=== PATIENT | male | born 1995 | race Asian ===

== ENCOUNTER 2017-07-19 02:50 | Emergency (ER) | payer OTHER ==
[~2017-07-19] VITALS: Ht 172.7 cm; Wt 83.9 kg
[2017-07-19 02:50] VITALS: BP_SYST 153
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
--- NOTE | 2017-07-19 02:50 | NUR ---
Patient to ER hallway for evaluation. [facility] officers are with the patient.
--- NOTE | 2017-07-19 02:54 | NUR ---
Written and verbal consent obtained from patient for blood alcohol, name and verified by patient. Disinfected patient's skin with Iodine that did not contain alcohol or other volatile organic compound. Collected the blood from the subject named by venipuncture, in the presence of Officer [place] Number [id number]. Used a sterile, dry hypodermic needle and dry vacuum blood collection. The dry vacuum blood collection was supplied by the officer named above. Withdrew a specimen of blood from Right antecubital of the subject named above. Inverted the blood tube several times to ensure that the preservative and anticoagulant were thoroughly mixed in the blood specimen. I initialed the blood tube label for identification. The labeled blood tube was handed directly to the Officer named above. The blood tube stopper remained in place while I had possession of the blood tube. The Officer placed tube into envelope and sealed it in my presence. Envelope initialed by myself and Officer named above. Patient tolerated well, bandage applied, and bleeding controlled.
--- NOTE | 2017-07-19 03:30 | NUR ---
ER Dr. Harris at bedside examining patient.
[2017-07-19 03:38] VITALS: BP_SYST 149
--- NOTE | 2017-07-19 03:38 | NUR ---
Patient given verbal discharge instructions and verbalizes understanding. ER MD discussed with patient the results and treatment provided. Patient in stable condition. ID arm band removed. Patient educated on pain management and to follow up with PMD. Pain Scale 0/10. Opportunity for questions provided and answered.
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
== END 2017-07-19 03:38 ==
LOC: SED 02:50
DX: Z02.89 Encounter for other administrative examinations (principal); V89.2XXA Person injured in unspecified motor-vehicle accident, traffic, initial encounter; Y93.89 Activity, other specified; Y92.89 Other specified places as the place of occurrence of the external cause; Y99.8 Other external cause status
CPT/HCPCS: 99283